=== PATIENT | male | born 1950 | race Caucasian/White ===

== ENCOUNTER → 2023-06-28 | Outpatient (CLI) | payer MEDICARE, OTHER ==
--- NOTE | 2023-06-28 15:41 | US ---
EXAMINATION TYPE: US carotid duplex BILAT DATE OF EXAM: 06/28/2023 COMPARISON: NONE CLINICAL INDICATION: Male, 72 years old with history of I65.29 OCCLUSION STENOSIS OF CAROTID ARTERY; TECHNIQUE: Carotid duplex ultrasound examination. Indirect Doppler criteria was utilized. FINDINGS: EXAM MEASUREMENTS: RIGHT: Peak Systolic Velocity (PSV) cm/sec ----- Right CCA: 64.6 ----- Right ICA: 102.0 ----- Right ECA: 61.3 ICA/CCA ratio: 1.6 RIGHT: End Diastole cm/sec ----- Right CCA: 12.1 ----- Right ICA: 30.4 ----- Right ECA: 9.4 LEFT: Peak Systolic Velocity (PSV) cm/sec ----- Left CCA: 81.4 ----- Left ICA: 83.5 ----- Left ECA: 64.0 ICA/CCA ratio: 1.0 LEFT: End Diastole cm/sec ----- Left CCA: 17.3 ----- Left ICA: 22.2 ----- Left ECA: 8.5 VERTEBRALS (direction of flow): Right Vertebral: Antegrade Left Vertebral: Antegrade Rhythm: Normal Motor Grader Rough Grade notes: No significant stenosis IMPRESSION: No hemodynamically significant internal carotid artery stenosis on either side. Criteria for Assigning % of Stenosis / Diameter reduction (Estimation based on the indirect measurements of the internal carotid artery velocities (ICA PSV). 1. Normal (no stenosis)=ICA PSV < 125 cm/s: ratio < 2.0: ICA EDV<40 cm/s. 2. Less than 50% stenosis=ICA PSV < 125 cm/s: ratio < 2.0: ICA EDV<40 cm/s. 3. 50 to 69% stenosis=ICA PSV of 125 to 230 cm/s: ration 2.0 ? 4.0: ICA EDV 40-100 cm/s. 4. Greater than 70% stenosis to near occlusion= ICA PSV > 230 cm/s: ratio > 4.0: ICA EDV > 100 cm/s. 5. Near occlusion= ICA PSV velocities may be low or undetectable: variable ratio and ICA EDV. 6. Total occlusion=unable to detect flow.
== END | disposition home or self-care (01) ==
LOC: RADUSWWP 09:53
PROVIDERS: ATTEND Family Medicine
DX: I65.23 Occlusion and stenosis of bilateral carotid arteries (principal)
CPT/HCPCS: 93880